=== PATIENT | female | born 1970 | race Caucasian/White ===

== ENCOUNTER 2017-07-21 12:18 | Emergency (ER) | payer MEDICARE ==
[~2017-07-21] VITALS: Ht 160 cm; Wt 82.3 kg
[2017-07-21 12:32] VITALS: BP 144/88; PULSE 83; RESP 18; TEMP 98.4; O2SAT 98
[2017-07-21] MEDS ORDERED: TRAZ50TA12 PO (13:42)
[2017-07-21] MEDS ORDERED: OXCA600T PO (13:42)
[2017-07-21] MEDS ORDERED: PRAZ2CAP PO (13:42)
[2017-07-21] MEDS ORDERED: BENZ0.5T PO (13:42)
[2017-07-21] MEDS ORDERED: OXCA150T PO (13:42)
[2017-07-21] MEDS ORDERED: IBUPROFEN 800 MG TAB PO ONE (14:15)
--- NOTE | 2017-07-21 14:38 | PD ---
HPI Chief Complaint: Injury Time Seen by Provider: 13:59 Travel History International Travel<30 days: No Contact w/Intl Traveler<30days: No Traveled to known affect area: No History of Present Illness HPI 46-year-old female here with left ankle pain after she had a twisting injury today. She did not fall to the ground. She has pain with weightbearing and range of motion. Symptom severity is moderate. Aggravated by walking and range of motion. Alleviating with rest. No head injury or loss of consciousness. PFSH Past Medical History Asthma: Yes Bipolar Disorder: Yes (ptsd) Anxiety: Yes Depression: Yes Gastrointestinal Disorders: Yes (celiac) Influenza Vaccination: Yes ?: Not LMP: 07/2017 Dilation and Curettage (D&C): Yes Past Surgical History Cholecystectomy: Yes Social History Alcohol Use: No Tobacco Use: Yes Allergies-Medications (Allergen,Severity, Reaction): Coded Allergies: acetaminophen (Verified Allergy, Severe, Rash, 07/21/17) propoxyphene (Verified Allergy, Severe, Rash, 07/21/17) bee venom protein (honey bee) (Verified Allergy, Intermediate, Swelling, ) wheat (Verified Allergy, Unknown, Nausea/Vomiting, 07/21/17) Reported Meds & Prescriptions Reported Meds & Active Scripts Active Reported Lamictal (Lamotrigine) 25 Mg Tab 50 Mg PO BID Prazosin (Prazosin HCl) 2 Mg Cap 2 Mg PO HS Trazodone (Trazodone HCl) 50 Mg Tab 50 Mg PO HS Benztropine (Benztropine Mesylate) 0.5 Mg Tab 0.5 Mg PO DAILY Oxcarbazepine 600 Mg Tab 600 Mg PO HS Oxcarbazepine 150 Mg Tab 300 Mg PO DAILY Review of Systems Except as stated in HPI: all other systems reviewed are Neg General / Constitutional: No: Fever Eyes: No: Visual changes HENT: No: Headaches Cardiovascular: No: Chest Pain or Discomfort Respiratory: No: Shortness of Breath Gastrointestinal: No: Abdominal Pain Genitourinary: No: Dysuria Physical Exam Narrative GENERAL: Alert well-appearing 46 old female SKIN: Warm and dry. HEAD: Normocephalic. EYES: No scleral icterus. No injection or drainage. NECK: Supple, trachea midline. No JVD or lymphadenopathy. CARDIOVASCULAR: Regular rate and rhythm without murmurs, gallops, or rubs. RESPIRATORY: Breath sounds equal bilaterally. No accessory muscle use. GASTROINTESTINAL: Abdomen soft, non-tender, nondistended. MUSCULOSKELETAL: No cyanosis, or edema. LLE: +TTP lateral malleolus. No deformity. Normal sensation. 2+ dorsal pedis pulse. Brisk cap refill. BACK: Nontender without obvious deformity. No CVA tenderness. Data Data Last Documented VS Vital Signs Date Time Temp Pulse Resp B/P (MAP) Pulse Ox O2 Delivery O2 Flow Rate FiO2 07/21/17 12:32 98.4 83 18 144/88 (106) 98 Orders Orders Ankle, Complete ([id number]) (07/21/17 ) Ibuprofen (Motrin) (07/21/17 14:15) MDM Medical Decision Making Medical Screen Exam Complete: Yes Emergency Medical Condition: Yes Differential Diagnosis Fracture, ankle sprain, metatarsal fracture Narrative Course 46-year-old female here with left ankle pain after twisting injury today. The extremity is neurovascular intact. X-ray negative for fracture. Diagnosis Primary Impression: Ankle sprain Qualified Codes: S93.402A - Sprain of unspecified ligament of left ankle, initial encounter Referrals: Primary Care Physician Additional Instructions: Ice and elevate the extremity. Jewel wrap and crutches as directed. Follow-up the primary doctor. Scripts Ibuprofen (Ibuprofen) 800 Mg Tab 800 MG PO Q6HR Y for PAIN, #40 TAB 0 Refills Prov: Rand Blackwood 07/21/17 Disposition: 01 DISCHARGE HOME Condition: Stable Rand Blackwood Jul 21, 2017 14:38
[2017-07-21] MEDS ORDERED: LAMO25 PO (14:48)
--- NOTE | 2017-07-21 14:53 | RADRPT ---
EXAM DATE/TIME: 07/21/2017 14:38 [facility] COMPARISON: No previous studies available for comparison. INDICATIONS : Left ankle pain; fell and twisted today. MEDICAL HISTORY : None. SURGICAL HISTORY : None. ENCOUNTER: Initial ACUITY: 1 day PAIN SCORE: 6/10 LOCATION: Left ankle. FINDINGS: Three view exam was performed of the left ankle. The bony structures are in normal alignment. No ev idence of fracture, dislocation. There is diffuse soft tissue swelling overlying the lateral malleolu s.. The ankle mortise is intact. No radiopaque foreign bodies are seen. Bony mineralization is nor mal. CONCLUSION: 1. Soft tissue swelling overlying the lateral malleolus. 2. No acute fracture or joint dislocation. Jhonyn Trujillo MD on July 21, 2017 at 14:50 Board Certified Radiologist. This report was verified electronically.
[2017-07-21] MEDS ORDERED: IBUP1TAB7 PO (15:00)
[2017-07-21 15:11] VITALS: RESP 17
== END 2017-07-21 15:26 | disposition home or self-care (01) ==
LOC: PHED 12:18 → PHEFT 15:26
DX: S93.402A Sprain of unspecified ligament of left ankle, initial encounter (principal); F41.8 Other specified anxiety disorders; Z86.59 Personal history of other mental and behavioral disorders; Z87.09 Personal history of other diseases of the respiratory system; Z87.19 Personal history of other diseases of the digestive system; X50.1XXA Overexertion from prolonged static or awkward postures, initial encounter
CPT/HCPCS: 73610; 99283; E0113; L1906